=== PATIENT | female | born 1960 | race Caucasian/White ===

== ENCOUNTER 2021-08-24 07:00 | Inpatient (IN) | payer OTHER ==
[2021-08-29] MEDS ORDERED: ceFAZolin 2 GM/DEX 5% 100 ML BAG ONE (12:34)
[2021-08-29] MEDS ORDERED: Lidocaine 1% w/Epinephrine 1:100K 30 ML VIAL ONE (14:02)
[2021-08-29] MEDS ORDERED: Bupivacaine 0.25% 10 ML VIAL ONE (14:02)
[2021-08-29] MEDS ORDERED: SUGAMMADEX SODIUM 200 MG/2 ML VIAL ONE (14:07)
[2021-08-29] MEDS ORDERED: Famotidine/PF 20 mg/2ml Vial ONE (14:07)
[2021-08-29] MEDS ORDERED: Fentanyl 100 MCG/2 ML VIAL ONE ×2 (14:07→14:45)
[2021-08-29] MEDS ORDERED: Rocuronium Bromide 10 MG/ML (10ML VIAL) ONE (14:55)
[2021-08-29] MEDS ORDERED: Ondansetron PF 4 MG/2 ML Vial ONE (14:55)
[2021-08-29] MEDS ORDERED: Ketorolac Tromethamine 30 MG/ML VIAL ONE (14:55)
[2021-08-29] MEDS ORDERED: PROPOFOL 200 MG/20 ML VIAL ONE (14:55)
[2021-08-29] MEDS ORDERED: Glycopyrrolate 0.2 MG/ML 5 ML SYRINGE ONE (14:55)
[2021-08-29] MEDS ORDERED: Lidocaine 1% PF 5 ML VIAL ONE (14:55)
[2021-08-29] MEDS ORDERED: fentaNYL Citrate/PF 2,000 MCG in Sodium Chloride 0.9% 60 ML IV PRN (16:37)
[2021-08-29] MEDS ORDERED: Ondansetron PF 4 MG/2 ML Vial IVP PRN ×2 (16:37→17:59)
[2021-08-29] MEDS ORDERED: diphenhydrAMINE 50 MG/ML VIAL IVP PRN ×2 (16:37→17:59)
[2021-08-29] MEDS ORDERED: Zolpidem Tartrate 5 MG TAB PO PRN (16:37)
[2021-08-29] MEDS ORDERED: PACU-Morphine 4MG/ML VIAL SLOW IVP PRN (16:37)
[2021-08-29] MEDS ORDERED: diphenhydrAMINE 50 MG/ML VIAL IM PRN (16:37)
[2021-08-29] MEDS ORDERED: Naloxone HCl 0.4 mg/ml Vial IV PRN (16:37)
[2021-08-29] MEDS ORDERED: diphenhydrAMINE 25 MG CAP PO PRN (16:37)
[2021-08-29] MEDS ORDERED: Promethazine HCl 25 MG/ML VIAL IVPB PRN (16:37)
[2021-08-29] MEDS ORDERED: Promethazine HCl 25 MG/ML VIAL IM PRN ×3 (16:37→17:59)
[2021-08-29] MEDS ORDERED: Communication Order-Pharmacy FS SCH (16:45)
[2021-08-29] MEDS ORDERED: Dextrose 50% Abboject 50 ML SYRINGE SLOW IVP PRN (17:59)
[2021-08-29] MEDS ORDERED: Dextrose 5% in Water 1,000 ML IV PRN (17:59)
[2021-08-29] MEDS ORDERED: hydrALAZINE 20 MG/ML VIAL SLOW IVP PRN (17:59)
[2021-08-29] MEDS ORDERED: HumaLOG 300 UNITS/3 ML VIAL SC PRN (17:59)
[2021-08-29] MEDS ORDERED: Scopolamine 1.5 mg/72 hour Patch TD SCH (17:59)
[2021-08-29] MEDS ORDERED: Hydrocodone-Acetamin 15 ML UDCUP PO PRN (17:59)
[2021-08-29] MEDS: Sodium Chloride 0.9% 1,000 ML IV SCH (18:34)
[2021-08-29 21:22] VITALS: BMI 42.4
[2021-08-29] MEDS: Mometasone 100 MCG/Formoterol 5 MCG 120 PUFF INHALER INH SCH (22:35)
[2021-08-30] MEDS: Sodium Chloride 0.9% 1,000 ML IV SCH (01:52)
[2021-08-30] MEDS ORDERED: Levothyroxine Sodium 25 MCG TAB PO SCH (06:00)
[2021-08-30 06:12] LABS: #Basophils 0.1 thou/uL (0.0-0.2); #Lymphocytes 1.8 thou/uL (1.20-3.40); #Monocytes 0.8 thou/uL (0.11-0.59); #Neutrophils 6.9 thou/uL (1.40-6.50); %Basophils 0.6 % (0.0-1.0); %Eosinophils 0.3 % (0.0-10.0); %Lymphocytes 18.8 % (21.0-51.0); %Monocytes 7.9 % (0.0-10.0); %Neutrophils 72.4 % (42.0-75.0); Mean Corpuscular HGB CONC 33.5 g/dL (32.0-36.0); Mean Corpuscular Hemoglobin 31.9 pg (27.0-31.0); Mean Corpuscular Volume 95.2 fL (78.0-98.0); Mean Platelet Volume 7.3 fL (7.4-10.4); Platelet Count 262 thou/uL (130-400); RBC Distribution Width 13.3 % (11.5-14.5); Red Blood Cell (RBC) Count 3.45 mill/uL (4.20-5.40); White Blood Cell (WBC) Count 9.6 thou/uL (4.8-10.8)
[2021-08-30 06:27] LABS: Anion Gap 9 mmol/L (10-20); BUN (Urea Nitrogen) 21 mg/dL (9.8-20.1); Calc. Creatinine Clearance 83 mL/min (70-130); Calcium 8.9 mg/dL (7.8-10.44); Carbon Dioxide 28 mmol/L (22-29); Chloride 107 mmol/L (98-107); Glucose 99 mg/dL (70-105); Sodium 140 mmol/L (136-145)
[2021-08-30] MEDS: Mometasone 100 MCG/Formoterol 5 MCG 120 PUFF INHALER INH SCH (07:58)
[2021-08-30] MEDS ORDERED: Pantoprazole 40 MG VIAL IVP SCH (09:00)
[2021-08-30 09:23] VITALS: BP 112/73; TEMP 97.9
== END 2021-08-30 10:24 | disposition home or self-care (01) | DRG 621 ==
LOC: SURG A 08-29 11:07 → SURG B 08-29 17:56
PROVIDERS: ADMIT Surgery; ATTEND Surgery
PROC: 0DB64Z3 Excision of Stomach, Percutaneous Endoscopic Approach, Vertical (ICD-10-PCS; principal; 2021-08-29)
PROC: 8E0W4CZ Robotic Assisted Procedure of Trunk Region, Percutaneous Endoscopic Approach (ICD-10-PCS; 2021-08-29)
DX: E66.01 Morbid (severe) obesity due to excess calories (principal); Z68.42 Body mass index [BMI] 45.0-49.9, adult; I10 Essential (primary) hypertension; E11.9 Type 2 diabetes mellitus without complications
CPT/HCPCS: 36415; 36416; 80048; 85025; 88307; 94760; J1885; J2405; J2704; J3010; J7050; S0020; S0028

== ENCOUNTER 2021-08-24 07:06 | Outpatient (CLI) | payer OTHER ==
[2021-08-24 09:55] LABS: #Basophils 0.1 10x3/uL (0.0-0.2); #Eosinphils 0.5 10x3/uL (0.0-0.5); #Monocytes 0.8 10x3/uL (0.0-1.1); #Neutrophils 2.5 10x3/uL (1.5-8.4); %Basophils 1.2 % (0.0-2.0); %Eosinophils 7.4 % (0.0-6.0); %Lymphocytes 42.1 % (18.0-47.0); %Monocytes 11.8 % (0.0-10.0); %Neutrophils 37.1 % (40.0-75.0); Hemoglobin 13.6 g/dL (12.0-15.5); Mean Corpuscular HGB CONC 31.8 g/dL (32.0-36.0); Mean Corpuscular Hemoglobin 29.8 pg (27.0-33.0); Mean Corpuscular Volume 93.9 fl (81.6-98.3); Mean Platelet Volume 10.4 fl (7.4-10.4); Platelet Count 327 10x3/uL (150-450); RBC Distribution Width 14.8 % (11.5-14.5); Red Blood Cell (RBC) Count 4.56 10x6/uL (3.90-5.03); White Blood Cell (WBC) Count 6.7 10x3/uL (3.5-10.5)
[2021-08-24 10:17] LABS: ALT (SGPT) 26 U/L (8-55); AST (SGOT) 31 U/L (5-34); Albumin 4.6 g/dL (3.5-5.0); Alkaline Phosphatase 74 U/L (40-110); Anion Gap 15 mmol/L (10-20); BUN (Urea Nitrogen) 34 mg/dL (9.8-20.1); Bilirubin, Total 0.9 mg/dL (0.2-1.2); Calc. Creatinine Clearance 0 mL/min (70-130); Carbon Dioxide 30 mmol/L (22-29); Chloride 97 mmol/L (98-107); Globulin 3.5 g/dL (2.4-3.5); Glucose 78 mg/dL (70-105); Protein, Total 8.1 g/dL (6.0-8.3); Sodium 138 mmol/L (136-145)
[2021-08-24 12:59] LABS: Hemoglobin A1c 5.2 % (4.0-6.0)
[2021-08-24 23:26] LABS: SARS-CoV-2 PCR by NAA Not Detected (NotDetected)
== END 2021-08-24 07:07 | disposition home or self-care (01) ==
LOC: LABBT 07:06
PROVIDERS: ATTEND Surgery
DX: Z01.818 Encounter for other preprocedural examination (principal); Z20.822 Contact with and (suspected) exposure to COVID-19
CPT/HCPCS: 71046; 80053; 83036; 85025; 93005; 93010; U0003; U0005